=== PATIENT | female | born 1990 | race Native Hawaiian/Other Pacific Islander ===

== ENCOUNTER 2018-01-13 15:42 | Emergency (ER) | payer SELFPAY ==
[2018-01-13 16:00] VITALS: BP 124/82
[2018-01-13 16:34] LABS: Bacteria,Urine 1+ /HPF (Negative); Bilirubin,Urine NEG (Negative); Blood,Urine NEG (Negative); Color,Urine Yellow (Yellow); Mucus,Urine FEW /HPF; Protein,Urine <15 mg/dL mg/dL (Negative); Urobilinogen,Urine < 2.0 mg/dL (<2.0)
[2018-01-13 16:39] LABS: HCG Qualitative,Urine Negative (Negative)
== END 2018-01-13 16:00 | disposition left against medical advice (07) ==
LOC: ED 15:42
DX: R11.2 Nausea with vomiting, unspecified (principal); Z53.21 Procedure and treatment not carried out due to patient leaving prior to being seen by health care provider
CPT/HCPCS: 81001; 81025